=== PATIENT | female | born 1960 | race Caucasian/White ===

== ENCOUNTER 2017-10-29 04:10 | Day surgery (SDC) | payer OTHER | END 2017-10-29 09:50 | disposition home or self-care (01) | LOC: AMB-ENDOS 04:10 | DX: K62.3 Rectal prolapse (principal); K64.8 Other hemorrhoids ==

== ENCOUNTER 2017-11-08 09:38 | Outpatient (CLI) | payer OTHER | END 2017-11-08 09:50 | disposition home or self-care (01) | LOC: LAB 09:38 | DX: K62.3 Rectal prolapse (principal); R19.5 Other fecal abnormalities; L29.0 Pruritus ani ==

== ENCOUNTER 2017-11-14 12:15 | Inpatient (IN) | payer OTHER ==
[~2017-11-14] VITALS: Ht 152.4 cm; Wt 53.5 kg
[2017-11-14] MEDS ORDERED: PROGESTERONE200 MG PO (14:45)
[2017-11-14] MEDS ORDERED: LEVO-T25 MCG PO (14:46)
== END 2017-11-19 14:16 | disposition home or self-care (01) | DRG 331 ==
LOC: O/R 11-18 05:50 → SURH 11-18 11:30 → SURG 11-18 12:15 → SURH 11-19 14:16
PROVIDERS: Surgery
PROC: 0DQP4ZZ Repair Rectum, Percutaneous Endoscopic Approach (ICD-10-PCS; principal; 2017-11-18 13:45)
DX: K62.3 Rectal prolapse (principal); E03.8 Other specified hypothyroidism

== ENCOUNTER → 2021-09-07 08:00 | Outpatient (CLI) | payer OTHER ==
[~2021-09-07 08:00] MED LIST: LEVO-T25 MCG PO; PROGESTERONE200 MG PO; SYNTHROID75 MCG PO
== END | disposition home or self-care (01) ==
LOC: LAB 08:00 → EDSTATUS 09-13 10:15 → CIR.AMB 09-13 10:15
PROVIDERS: ATTEND Surgery
DX: K43.2 Incisional hernia without obstruction or gangrene (principal); Z01.818 Encounter for other preprocedural examination; Z20.818 Contact with and (suspected) exposure to other bacterial communicable diseases; Z20.828 Contact with and (suspected) exposure to other viral communicable diseases